=== PATIENT | female | born 1945 | race Caucasian/White ===

== ENCOUNTER → 2018-06-04 | Outpatient (CLI) | payer OTHER ==
[~2018-06-04] MED LIST: AMLO1TAB84 PO; BUPR100T11 PO; CARB1TAB43 PO; ESCI10TA PO; FENO135C PO; FESO4TAB PO; FLUTICASONE INH; LEVO50TA PO; LEVO75TA PO; METO-99 PO; OXYC5CAP2 PO; ROPI0.254 PO; SALI44.3 PO
== END | disposition home or self-care (01) ==
LOC: CFH 14:24
PROVIDERS: ATTEND Nurse Practitioner Family
DX: M81.0 Age-related osteoporosis without current pathological fracture (principal); M43.8X6 Other specified deforming dorsopathies, lumbar region; M51.36 Other intervertebral disc degeneration, lumbar region; M40.294 Other kyphosis, thoracic region; M12.88 Other specific arthropathies, not elsewhere classified, other specified site; M40.46 Postural lordosis, lumbar region
CPT/HCPCS: 72052; 72082; 72114; 77080